=== PATIENT | female | born 1995 | race Caucasian/White ===

== ENCOUNTER → 2017-11-20 11:10 | Outpatient (CLI) | payer BC, SELFPAY ==
[2017-11-22 20:06] LABS: HSV 1 By PCR Positive (Negative)
[2017-11-23 10:35] LABS: HSV 2 By PCR Negative (Negative)
== END ==
PROVIDERS: Visit Provider Obstetrics & Gynecology
DX: N89.8 Other specified noninflammatory disorders of vagina (principal)
CPT/HCPCS: 87529

== ENCOUNTER → 2019-07-22 16:35 | Outpatient (CLI) | payer BC, SELFPAY | PROVIDERS: Visit Provider Obstetrics & Gynecology | DX: Z12.4 Encounter for screening for malignant neoplasm of cervix (principal); Z11.3 Encounter for screening for infections with a predominantly sexual mode of transmission ==

== ENCOUNTER → 2020-10-11 | Outpatient (CLI) | payer BC, SELFPAY ==
[2020-10-15 07:06] LABS: Chlamydia By Nucleic Acid AMP Negative (Negative)
[2020-10-15 16:31] LABS: Gonococcus By Nucleic Acid AMP Negative (Negative)
== END | disposition home or self-care (01) ==
PROVIDERS: Referring Provider Student in an Organized Health Care Education/Training Program; Visit Provider Student in an Organized Health Care Education/Training Program
DX: Z11.3 Encounter for screening for infections with a predominantly sexual mode of transmission (principal)
CPT/HCPCS: 87491; 87591

== ENCOUNTER 2023-05-06 06:55 | Outpatient (CLI) | payer BC, SELFPAY ==
[2023-05-06 07:09] VITALS: TEMP 36.8
[2023-05-06 07:10] VITALS: BP 151/80; PULSE 81; O2SAT 98
[2023-05-06 07:26] VITALS: BMI 31.6
[2023-05-06 07:37] VITALS: BP 122/71; PULSE 62
[2023-05-06 07:57] VITALS: BP 114/62; PULSE 62
--- NOTE | 2023-05-06 08:48 | OB.TRI.NOTE ---
HPI - General HPI Narrative MARIA E LI, is a 27 F at 39.6 weeks gestation who presents with contractions. Stated was seen yesterday in office and had membranes stripped. Continued to have contractions during the night. Denies any loss of fluid or vaginal bleeding. Positive movement. Maternal Data Information KASH Calculator Estimated Delivery Date Method Current WG Current Estimate 05/07/23 Manual 39w 6d Final KASH: 05/07/23 PFSH PFSH Allergy/AdvReac Type Severity Reaction Status Date / Time No Known Allergies Allergy Verified 05/06/23 09:32 NST FHR Rate Baby A Baseline: 125 Variability:: Moderate Accelerations:: 15 x 15 Decelerations:: None NST Reactive:: Yes FHR Category:: Category I Uterine Activity:: Irregular Assessment & Plan (1) 39 weeks gestation of : (2) Irregular contractions: PLAN: Plan NST reactive Cat. 1 tracing CE - unchanged D/C home with labor precautions Follow up in office
== END 2023-05-06 09:35 | disposition home or self-care (01) ==
LOC: WPOUT 07:00 → WP 07:01
PROVIDERS: Referring Provider Advanced Practice Midwife; Visit Provider Advanced Practice Midwife
DX: O47.1 False labor at or after 37 completed weeks of gestation (principal); Z3A.39 39 weeks gestation of pregnancy
CPT/HCPCS: 59050; 99221; G0378

== ENCOUNTER 2023-05-07 03:22 | Inpatient (IN) | payer BC, SELFPAY ==
[2023-05-07] VITALS (78 sets, daily range): BP systolic 68–150; BP diastolic 40–79; PULSE 61–118; RESP 15–20; TEMP 36.1–37.6; O2SAT 96–100; BMI 31.6
[2023-05-07 03:22] LABS: ROM Internal Control Test YES-OK TO RESULT pt. (Internal QC); ROM Patient Test POSITIVE (Negative); Record Kit Lot#, ROM+ K1409
[2023-05-07] MEDS: LACTATED RINGERS 500 ML 999 ML IV ×2 (03:35→06:11)
[2023-05-07 03:48] LABS: Absolute Lymphocyte Count 1.46 X10^3/uL (0.83-4.51); Absolute Neutrophil Count 10.6 X10^3/uL (2.0-7.7); Basophil# 0.03 X10^3/uL; Basophil% 0.2 % (0-1); Eosinophil# 0.01 X10^3/uL; Eosinophils% 0.1 % (0-5); Hematocrit 36.3 % (37-47); Hemoglobin 12.6 g/dL (12.0-15.0); Lymphocyte # 1.46 X10^3/ul (0.83-4.51); Lymphocyte % 11.3 % (19-41); Mean Corp Hgb Conc 34.7 g/dL (32-36); Mean Corpuscular Hgb 31.3 pg (27.0-32.0); Mean Corpuscular Volume 90.1 fL (81-99); Mean Platelet Vol. 10.2 fl (6.2-12.0); Monocyte# 0.85 X10^3/uL; Monocyte% 6.6 % (0-10); NRBC Flagged by Analyzer 0 % (0-5); Neutrophil # 10.58 X10^3/uL (2.7-7.7); Neutrophil % 81.5 % (47-70); Platelet Count 258 K/mm3 (150-450); RBC Distribution Width CV 13.4 % (11.6-14.6); Red Blood Count 4.03 M/mm3 (4.2-5.4)
[2023-05-07] MEDS: Lactated Ringers 1,000 ML 200 ML IV ×3 (04:07→14:45)
[2023-05-07 04:50] LABS: Syphilis Antibodies Non-reactive
[2023-05-07] MEDS: fentaNYL-bupivacaine (epidural) 100 ML BAG EPIDURAL ×2 (05:06→09:45)
--- NOTE | 2023-05-07 06:58 | PCM.HP.OB ---
HPI - General General Date of Admission: 05/07/23 HPI Narrative MARIA E LI, is a 27 F at 40 weeks gestation who presents with contractions and leaking fluid. She was seen yesterday in triage and discharged home due to no cervical change. Reports thinks she is leaking fluid since earlier in the evening. has been uncomplicated. Maternal Data Information KASH Calculator Estimated Delivery Date Method Current WG Current Estimate 05/07/23 Manual 40w 0d PFSH PFSH Home Medications vits,calcium 91-iron 28 mg-folic 975 mcg-dha 200 mg oral pack ( + DHA) pkg PO 05/07/23 [History Last Taken 05/06/23] Allergy/AdvReac Type Severity Reaction Status Date / Time No Known Allergies Allergy Verified 05/07/23 03:12 Surgical History History of surgery Social History Smoking Status: Former smoker History Elective abortions Hx Para 0 Spontaneous abortions Hx # Term Pregnancies Ectopic pregnancies Hx # Pregnancies Multiple births # of living children ROS Eyes Eyes: Denies blurry vision, change in vision or spots in vision ENT HEENT: Denies dizziness or headache(s) Cardiovascular Cardiovascular: Denies abdominal pain, chest pain or dyspnea Respiratory/Chest Respiratory/Chest: Denies cough, dyspnea, shortness of breath at rest or shortness of breath with exertion Gastrointestinal Gastrointestinal: Denies abdominal pain, diarrhea or vomiting Genitourinary Genitourinary: Denies change in urinary stream, difficulty urinating or dysuria Musculoskeletal Musculoskeletal: Reports none Integumentary Integumentary: Denies rash Neurologic Neurologic: Denies dizziness, headache(s), memory loss or weakness Psychiatric Psychiatric: Reports none Vital Signs Vital Signs Vital Signs: 05/07/23 02:44 05/07/23 02:44 05/07/23 02:44 Temperature Temperature Source Temporal Pulse Rate 89 Blood Pressure 136/76 H BP Systolic 136 BP Diastolic 76 Pulse Ox 05/07/23 02:44 05/07/23 02:44 05/07/23 03:15 Temperature 99.2 F H Temperature Source Pulse Rate 80 Blood Pressure BP Systolic BP Diastolic Pulse Ox 98 05/07/23 03:15 05/07/23 04:20 05/07/23 04:20 Temperature Temperature Source Pulse Rate 107 H Blood Pressure 134/70 H BP Systolic 134 BP Diastolic 70 Pulse Ox 97 05/07/23 04:20 05/07/23 04:20 05/07/23 04:20 Temperature 97.7 F L Temperature Source Temporal Pulse Rate Blood Pressure BP Systolic BP Diastolic Pulse Ox 97 05/07/23 04:25 05/07/23 04:25 05/07/23 04:25 Temperature Temperature Source Pulse Rate 83 Blood Pressure 131/65 H BP Systolic 131 BP Diastolic 65 Pulse Ox 98 05/07/23 04:29 05/07/23 04:29 05/07/23 04:30 Temperature Temperature Source Pulse Rate 86 100 Blood Pressure 135/69 H BP Systolic 135 BP Diastolic 69 Pulse Ox 05/07/23 04:30 05/07/23 04:35 05/07/23 04:35 Temperature Temperature Source Pulse Rate 83 Blood Pressure 131/70 H BP Systolic 131 BP Diastolic 70 Pulse Ox 98 05/07/23 04:35 05/07/23 04:39 05/07/23 04:39 Temperature Temperature Source Pulse Rate 77 Blood Pressure 136/67 H BP Systolic 136 BP Diastolic 67 Pulse Ox 97 05/07/23 04:40 05/07/23 04:40 05/07/23 04:44 Temperature Temperature Source Pulse Rate 88 Blood Pressure 130/71 H BP Systolic 130 BP Diastolic 71 Pulse Ox 98 05/07/23 04:44 05/07/23 04:45 05/07/23 04:45 Temperature Temperature Source Pulse Rate 80 85 Blood Pressure BP Systolic BP Diastolic Pulse Ox 98 05/07/23 04:49 05/07/23 04:49 05/07/23 04:50 Temperature Temperature Source Pulse Rate 82 89 Blood Pressure 140/69 H BP Systolic 140 BP Diastolic 69 Pulse Ox 05/07/23 04:50 05/07/23 04:54 05/07/23 04:54 Temperature Temperature Source Pulse Rate 94 Blood Pressure 139/70 H BP Systolic 139 BP Diastolic 70 Pulse Ox 98 05/07/23 04:55 05/07/23 04:55 05/07/23 04:59 Temperature Temperature Source Pulse Rate 90 Blood Pressure 134/77 H BP Systolic 134 BP Diastolic 77 Pulse Ox 97 05/07/23 04:59 05/07/23 05:00 05/07/23 05:00 Temperature Temperature Source Pulse Rate 107 H 98 Blood Pressure BP Systolic BP Diastolic Pulse Ox 98 05/07/23 05:04 05/07/23 05:04 05/07/23 05:05 Temperature Temperature Source Pulse Rate 93 96 Blood Pressure 125/67 H BP Systolic 125 BP Diastolic 67 Pulse Ox 05/07/23 05:05 05/07/23 05:09 05/07/23 05:09 Temperature Temperature Source Pulse Rate 99 Blood Pressure 128/63 H BP Systolic 128 BP Diastolic 63 Pulse Ox 97 05/07/23 05:10 05/07/23 05:10 05/07/23 05:14 Temperature Temperature Source Pulse Rate 99 Blood Pressure 127/61 H BP Systolic 127 BP Diastolic 61 Pulse Ox 96 05/07/23 05:14 05/07/23 05:15 05/07/23 05:15 Temperature Temperature Source Pulse Rate 98 100 Blood Pressure BP Systolic BP Diastolic Pulse Ox 98 05/07/23 05:19 05/07/23 05:19 05/07/23 05:20 Temperature Temperature Source Pulse Rate 89 94 Blood Pressure 127/66 H BP Systolic 127 BP Diastolic 66 Pulse Ox 05/07/23 05:20 05/07/23 05:00 05/07/23 05:24 Temperature Temperature Source Pulse Rate Blood Pressure 129/68 H BP Systolic 129 BP Diastolic 68 Pulse Ox 98 98 05/07/23 05:24 05/07/23 05:24 05/07/23 05:25 Temperature Temperature Source Pulse Rate 103 H 94 Blood Pressure 128/70 H BP Systolic 128 BP Diastolic 70 Pulse Ox 05/07/23 05:25 05/07/23 05:29 05/07/23 05:29 Temperature Temperature Source Pulse Rate 82 Blood Pressure 120/60 BP Systolic 120 BP Diastolic 60 Pulse Ox 97 05/07/23 05:30 05/07/23 05:30 05/07/23 05:34 Temperature Temperature Source Pulse Rate 91 Blood Pressure 121/65 H BP Systolic 121 BP Diastolic 65 Pulse Ox 98 05/07/23 05:34 05/07/23 05:35 05/07/23 05:35 Temperature Temperature Source Pulse Rate 90 89 Blood Pressure BP Systolic BP Diastolic Pulse Ox 97 05/07/23 05:39 05/07/23 05:39 05/07/23 05:40 Temperature Temperature Source Pulse Rate 83 84 Blood Pressure 124/64 H BP Systolic 124 BP Diastolic 64 Pulse Ox 05/07/23 05:40 05/07/23 05:44 05/07/23 05:44 Temperature Temperature Source Pulse Rate 82 Blood Pressure 123/63 H BP Systolic 123 BP Diastolic 63 Pulse Ox 98 05/07/23 05:45 05/07/23 05:45 05/07/23 05:49 Temperature Temperature Source Pulse Rate 86 Blood Pressure 122/68 H BP Systolic 122 BP Diastolic 68 Pulse Ox 97 05/07/23 05:49 05/07/23 05:50 05/07/23 05:50 Temperature Temperature Source Pulse Rate 80 83 Blood Pressure BP Systolic BP Diastolic Pulse Ox 97 05/07/23 05:54 05/07/23 05:54 05/07/23 05:55 Temperature Temperature Source Pulse Rate 87 76 Blood Pressure 121/69 H BP Systolic 121 BP Diastolic 69 Pulse Ox 05/07/23 05:55 05/07/23 05:59 05/07/23 05:59 Temperature Temperature Source Pulse Rate 80 Blood Pressure 116/67 BP Systolic 116 BP Diastolic 67 Pulse Ox 97 05/07/23 06:00 05/07/23 06:00 05/07/23 06:00 Temperature 98.3 F Temperature Source Temporal Pulse Rate Blood Pressure BP Systolic BP Diastolic Pulse Ox 99 05/07/23 06:07 05/07/23 06:07 05/07/23 06:08 Temperature Temperature Source Pulse Rate 106 H Blood Pressure 68/40 L BP Systolic 68 BP Diastolic 40 Pulse Ox 99 05/07/23 06:08 05/07/23 06:09 05/07/23 06:09 Temperature Temperature Source Pulse Rate 111 H 86 Blood Pressure 100/53 L BP Systolic 100 BP Diastolic 53 Pulse Ox 05/07/23 06:12 05/07/23 06:12 05/07/23 06:12 Temperature Temperature Source Pulse Rate 71 Blood Pressure 95/48 L BP Systolic 95 BP Diastolic 48 Pulse Ox 98 05/07/23 06:17 05/07/23 06:17 05/07/23 06:17 Temperature Temperature Source Pulse Rate 88 Blood Pressure 101/50 L BP Systolic 101 BP Diastolic 50 Pulse Ox 98 05/07/23 06:22 05/07/23 06:22 05/07/23 06:22 Temperature Temperature Source Pulse Rate 88 Blood Pressure 98/47 L BP Systolic 98 BP Diastolic 47 Pulse Ox 98 05/07/23 06:22 05/07/23 06:27 05/07/23 06:27 Temperature Temperature Source Pulse Rate 88 75 Blood Pressure 96/51 L BP Systolic 96 BP Diastolic 51 Pulse Ox 05/07/23 06:27 05/07/23 06:32 05/07/23 06:32 Temperature Temperature Source Pulse Rate 103 H Blood Pressure 107/51 L BP Systolic 107 BP Diastolic 51 Pulse Ox 98 05/07/23 06:32 05/07/23 06:38 05/07/23 06:38 Temperature Temperature Source Pulse Rate 75 Blood Pressure 119/76 BP Systolic 119 BP Diastolic 76 Pulse Ox 98 05/07/23 06:43 05/07/23 06:43 05/07/23 06:43 Temperature Temperature Source Temporal Pulse Rate 75 Blood Pressure 120/69 BP Systolic 120 BP Diastolic 69 Pulse Ox 05/07/23 06:43 05/07/23 06:49 05/07/23 06:49 Temperature 98.3 F Temperature Source Pulse Rate 101 H Blood Pressure 116/57 L BP Systolic 116 BP Diastolic 57 Pulse Ox Weight Weight: 195 lb 9.6 oz Body Mass Index (BMI) 31.6 Physical Exam Const alert, oriented x3 and no apparent distress General Appearance: cooperative Orientation / Consciousness: awake Exam Limitations: no limitations HEENT normocephalic Head and Scalp: normal to inspection Eyes General Eye: normal appearance of both eyes Neck full ROM and no lymphadenopathy Lymph Lymphatic: no lymphadenopathy noted Chest inspection of chest normal Resp normal respiratory effort, normal air movement and clear to auscultation bilaterally Effort and Inspection: able to speak in complete sentences and symmetric chest movement Cardio regular rate and regular rhythm GI normal to inspection, nondistended, normoactive bowel sounds Manual OB Exam: presentation cephalic, dilated 4 and effaced 80 Back/Spine normal ROM Extremity full ROM and no calf tenderness Skin no rashes or lesions noted General Skin Exam: no breakdown Neuro oriented x3 and CN's II-XII intact bilaterally Psych mental status grossly normal and thought process normal Labs Labs Labs: Blood Type O POSITIVE Antibody Screen NEGATIVE Hct 36.3 % (37-47) L Hgb 12.6 g/dL (12.0-15.0) Syphilis Total Ab Non-reactive Chlamydia DNA (GERARD) Negative (Negative) N.gonorrhoeae DNA (GERARD) Negative (Negative) Miscellaneous Test GBS negative Assessment & Plan (1) Spontaneous rupture of amniotic membranes: (2) Spontaneous onset of labor: (3) 40 weeks gestation of : (4) Nulliparity: PLAN: Plan Admit to labor and delivery CE- /-2 ROM plus- POSITIVE Cat. 2 tracing with some decelerations but resolved and overall reassuring FSE and IUPC placed Epidural for pain control Anticipate
[2023-05-07] MEDS: Acetaminophen 500 MG Tablet PO (16:11)
[2023-05-07] MEDS: Sodium Citrate/Citric Acid 30 ML UDC PO (16:12)
--- NOTE | 2023-05-07 16:19 | EX.PCM.OBRPT ---
Maternal Data Information KASH Calculator Estimated Delivery Date Method Current WG Current Estimate 05/07/23 Manual 40w 0d Details Operative Information Date of Procedure: 05/07/23 Pre-Operative Diagnosis: (1) Failure to descend Post-Operative Diagnosis: Same Indications for : Failure of Descent Indications Narrative: The patient was taken to the operating room where epidural anesthesia was dosed & found to be adequate. She was prepped and draped in the dorsal supine position with a leftward tilt. A Pfannenstiel skin incision was made approximately 2 cm above the symphysis pubis and carried through to the underlying fascia with the scalpel. The fascia was incised incised in the midline and extended laterally with the Prado scissors. The rectus muscles were in the midline and the peritoneum was entered carefully and bluntly. The peritoneal incision was stretched and the bladder blade was inserted. Vesicouterine peritoneum was tented up, incised & then bladder flap created gently. The uterine incision was made in a low transverse fashion with the scalpel and extended superiorly and inferiorly with blunt dissection. RN elevated head vaginally. The infant's head was brought to the incision in the flexed position and delivered without difficulty. The head was gently guided to allow delivery of the anterior and posterior shoulders. The body then delivered with fundal pressure in the standard fashion. The 3VC cord was clamped and cut in delayed fashion. The infant was handed off to the waiting pediatric nurse practitioner. The placenta was delivered with fundal massage and gentle traction in the standard fashion. The uterus was exteriorized and cleared of clots and debris. The uterine incision was closed with 2 x #1 Vicryl suture in a running locked fashion as there were bilateral extensions of the uterine incision. 2 additional figure of eight sutures were placed on the right side of the uterine incision using 3-0 vicryl to obtain excellent hemostasis. The incision was examined and was found to be hemostatic. The uterus was returned to the abdominal cavity. The uterine incision was re-examined and 1 figure of eight suture using monocryl were placed on the left side of the uterine incision for excellent hemostasis After irrigating Mele was placed over the uterine incision as some areas were denuded (but hemostatic). The rectus muscle was examined and any bleeding was Bovie cauterized. The fascia was closed with PDS suture in a running standard fashion. The subcutaneous tissue was examining and any bleeding was Bovie cauterized. The subcutaneous tissue was reapproximated with interrupted sutures. The skin was closed in a subcuticular fashion by the APPLICATIONS SCIENTIST while I was present in the labor & delivery unit. The remainder of the procedure was performed by me with assistance. All sponge, lap, and needle counts were correct. The patient was taken to her room for recovery in a stable condition. Classification: ARNOLDO Procedure Type: low transverse home sales service professional #1: Nanda Purcell Type of Anesthesia: Epidural Antibiotic Given: Ancef 2 grams IV x1 and Zithromax 500 mg/5 mL X1 Drain: De Leon to straight drain Estimated Blood Loss: 800ml Fluids Replaced: 1200ml Procedure Start Time: 16:34 Procedure Stop Time: 17:28 Findings Description of Procedure: Normal maternal uterus and adnexa Presentation: Positive for Vertex Amniotic Membrane Rupture Type: Artificial Amniotic Fluid Description: Lightly stained meconium Placental Delivery Description: Expressed Placenta Disposition: [facility] Specimen(s) Sent to Pathology: none Cord Vessel Description: 3 Vessels Cord Entanglement: None Infant A Gender: Male (1 minute): 8 (5 minute): 9 Delayed Cord Clamping: No Complications Complications: none
[2023-05-07] MEDS: Cefazolin 2 GM in 0.9% Normal Saline (100mL Bag) 100 ML IV (16:20)
[2023-05-07] MEDS: Azithromycin 500 MG in Dextrose 5%-Water (250mL Bag) 250 ML 250 MG IV (17:04)
[2023-05-07] MEDS: Oxytocin 15 Units/NS 250ml 15 UNITS/250 ML IV.SOLN 83 UNITS IV (17:54)
[2023-05-07] MEDS: Ketorolac 30 MG/ML Syringe IV (18:43)
--- NOTE | 2023-05-07 19:55 | NURSING ---
epidural catheter removed tip intact at this time, pt tolerated well, band aid applied
[2023-05-07] MEDS: Lactated Ringers 1,000 ML 100 ML IV (20:59)
[2023-05-07] MEDS: Acetaminophen 500 MG Tablet 1000 MG PO (21:59)
[2023-05-08] VITALS (9 sets, daily range): BP systolic 107–123; BP diastolic 49–70; PULSE 62–95; RESP 16–18; TEMP 36.1–37; O2SAT 96–98
[2023-05-08] MEDS: Ketorolac 30 MG/ML Syringe IV ×3 (00:10→12:20)
[2023-05-08] MEDS: Acetaminophen 500 MG Tablet 1000 MG PO ×4 (04:17→22:27)
[2023-05-08] MEDS: Enoxaparin 40 MG/0.4 ML Syringe SC (04:17)
[2023-05-08 04:55] LABS: Hemoglobin 10.1 g/dL (12.0-15.0); Mean Corp Hgb Conc 32.6 g/dL (32-36); Mean Corpuscular Hgb 30.5 pg (27.0-32.0); Mean Corpuscular Volume 93.7 fL (81-99); Mean Platelet Vol. 10.6 fl (6.2-12.0); Platelet Count 180 K/mm3 (150-450); RBC Distribution Width CV 13.8 % (11.6-14.6); RBC Distribution Width SD 46.7 fl (35.1-43.9); Red Blood Count 3.31 M/mm3 (4.2-5.4); White Blood Count 14.7 K/mm3 (4.4-11.0)
[2023-05-08] MEDS: 0.9% Saline Lock 10 ML Syringe IV ×2 (06:22→12:20)
--- NOTE | 2023-05-08 07:45 | NURSING ---
pt encouraged to go the BR. will recheck fundus after she gets back to bed.
--- NOTE | 2023-05-08 08:00 | PCM.PN.OB ---
Subjective Subjective Doing well per patient and nursing staff. Ambulating and taking PO without difficulty. Voiding and passing flatus. Pain controlled. Denies headache, visual changes, chest pain, shortness of breath, leg pain or increased bleeding. Lochia normal. Objective Data Objective Data Vital Signs: Vital Signs Temp Pulse Resp BP Pulse Ox O2 Del Method 97.0 F L 62 16 107/57 L 97 Room Air 05/08/23 07:39 05/08/23 07:39 05/08/23 07:39 05/08/23 07:39 05/08/23 07:39 05/08/23 07:39 Oxygen Delivery Method Room Air Weight: 195 lb 9.6 oz Body Mass Index (BMI) 31.6 Intake & Output: Intake and Output for Last 24 Hours 05/06/23 05/07/23 05/08/23 23:59 23:59 23:59 Intake Total 3345.00 / 3345.00 751.67 / 751.67 Output Total 2260 / 2260 600 / 600 Balance 1085.00 / 1085.00 151.67 / 151.67 Lab / Micro Data 05/08/23 04:40 Labs: Laboratory Results - last 24 hr 05/08/23 04:40: WBC 14.7 H, RBC 3.31 L, Hgb 10.1 L, Hct 31.0 L, MCV 93.7, MCH 30.5, MCHC 32.6 D, RDW Std Deviation 46.7 H, RDW Coeff of Joe 13.8, Plt Count 180, MPV 10.6 ROS Constitutional Constitutional: Reports systems reviewed and no addt'l complaints, except as documented; Denies headache(s) Eyes Eyes: Denies acute decrease in peripheral vision, blurry vision or change in vision ENT HEENT: Reports systems reviewed and no addt'l complaints, except as documented Cardiovascular Cardiovascular: Denies chest pain or dizziness Respiratory/Chest Respiratory/Chest: Denies cough, dyspnea, dyspnea on exertion, shortness of breath at rest or shortness of breath with exertion Gastrointestinal Gastrointestinal: Denies abdominal pain, diarrhea, nausea or vomiting Genitourinary Genitourinary: Denies abdominal discomfort Musculoskeletal Musculoskeletal: Denies limited range of motion Integumentary Integumentary: Reports systems reviewed and no addt'l complaints, except as documented Neurologic Neurologic: Reports systems reviewed and no addt'l complaints, except as documented Psychiatric Psychiatric: Reports systems reviewed and no addt'l complaints, except as documented Endocrine Endocrinology: Reports systems reviewed and no addt'l complaints, except as documented Hematologic/Lymphatic Hematologic/Lymphatic: Reports systems reviewed and no addt'l complaints, except as documented Allergic/Immunologic Allergic/Immunologic: Reports systems reviewed and no addt'l complaints, except as documented Physical Exam Const alert and oriented x3 General Appearance: cooperative Orientation / Consciousness: awake, oriented to person, oriented to place and oriented to time Exam Limitations: no limitations HEENT normocephalic Head and Scalp: normal to inspection, normocephalic and atraumatic Face and Sinus: normal facial exam Eyes General Eye: normal appearance of both eyes Neck full ROM Chest Chest: symmetrical chest wall rise Resp normal respiratory effort and normal air movement Auscultation: clear to auscultation bilaterally Cardio regular rate, regular rhythm, S1 normal heart sound, S2 normal heart sound, no murmurs, no rub, no gallops and no clicks GI normal to inspection, nondistended, normoactive bowel sounds and non-tender appearance of the vagina normal Bladder / Kidney Exam: no CVA tenderness Back/Spine normal ROM Extremity normal to inspection and full ROM Skin no rashes or lesions noted Neuro oriented x3 and moves all extremities Sensorium / Orientation: awake, alert and oriented to person Assessment & Plan (1) Status post section: PLAN: Plan 1) POD #1 Section 2) Vitals stable 3) I&O 4) Pain management 5) Planning D/C home tomorrow
[2023-05-08] MEDS: Senna/Docusate Sodium 1 Tablet PO (10:12)
[2023-05-08] MEDS: Ibuprofen 600 MG Tablet PO (18:35)
[2023-05-09] MEDS: Ibuprofen 600 MG Tablet PO ×2 (00:38→06:22)
[2023-05-09 01:20] VITALS: BP 115/71; PULSE 89; RESP 16; TEMP 36.3; O2SAT 96
[2023-05-09] MEDS: Acetaminophen 500 MG Tablet 1000 MG PO ×2 (04:29→10:10)
[2023-05-09] MEDS: Enoxaparin 40 MG/0.4 ML Syringe SC (04:29)
[2023-05-09 07:57] VITALS: BP 115/69; PULSE 78; RESP 14; TEMP 36.6
[2023-05-09 07:59] VITALS: PULSE 78; RESP 14
[2023-05-09] MEDS: Senna/Docusate Sodium 1 Tablet PO (10:10)
--- NOTE | 2023-05-09 10:44 | PCM.PN.OB ---
Subjective Subjective Doing well per patient and nursing staff. Ambulating and taking PO without difficulty. Voiding and passing flatus. Pain controlled. , services for assistance. Denies headache, visual changes, chest pain, shortness of breath, leg pain or increased bleeding. Lochia normal. Objective Data Objective Data Vital Signs: Vital Signs Temp Pulse Resp BP Pulse Ox O2 Del Method 97.8 F 78 14 115/69 96 Room Air 05/09/23 07:57 05/09/23 07:59 05/09/23 07:59 05/09/23 07:57 05/09/23 01:20 05/09/23 07:59 Oxygen Delivery Method Room Air Weight: 195 lb 9.6 oz Body Mass Index (BMI) 31.6 Intake & Output: Intake and Output for Last 24 Hours 05/07/23 05/08/23 05/09/23 23:59 23:59 23:59 Intake Total 3345.00 / 3345.00 751.67 / 751.67 Output Total 2260 / 2260 1950 / 1950 Balance 1085.00 / 1085.00 -1198.33 / -1198.33 Lab / Micro Data 05/08/23 04:40 ROS Constitutional Constitutional: Reports systems reviewed and no addt'l complaints, except as documented; Denies headache(s) Eyes Eyes: Denies acute decrease in peripheral vision, blurry vision or change in vision ENT HEENT: Reports systems reviewed and no addt'l complaints, except as documented Cardiovascular Cardiovascular: Denies chest pain or dizziness Respiratory/Chest Respiratory/Chest: Denies cough, dyspnea, dyspnea on exertion, shortness of breath at rest or shortness of breath with exertion Gastrointestinal Gastrointestinal: Denies abdominal pain, diarrhea, nausea or vomiting Genitourinary Genitourinary: Denies abdominal discomfort Musculoskeletal Musculoskeletal: Denies limited range of motion Integumentary Integumentary: Reports systems reviewed and no addt'l complaints, except as documented Neurologic Neurologic: Reports systems reviewed and no addt'l complaints, except as documented Psychiatric Psychiatric: Reports systems reviewed and no addt'l complaints, except as documented Endocrine Endocrinology: Reports systems reviewed and no addt'l complaints, except as documented Hematologic/Lymphatic Hematologic/Lymphatic: Reports systems reviewed and no addt'l complaints, except as documented Allergic/Immunologic Allergic/Immunologic: Reports systems reviewed and no addt'l complaints, except as documented Physical Exam Const alert and oriented x3 General Appearance: cooperative Orientation / Consciousness: awake, oriented to person, oriented to place and oriented to time Exam Limitations: no limitations HEENT normocephalic Head and Scalp: normal to inspection, normocephalic and atraumatic Face and Sinus: normal facial exam Eyes General Eye: normal appearance of both eyes Neck full ROM Chest Chest: symmetrical chest wall rise Resp normal respiratory effort and normal air movement Auscultation: clear to auscultation bilaterally Cardio regular rate, regular rhythm, S1 normal heart sound, S2 normal heart sound, no murmurs, no rub, no gallops and no clicks GI normal to inspection, nondistended, normoactive bowel sounds and non-tender appearance of the vagina normal Bladder / Kidney Exam: no CVA tenderness Back/Spine normal ROM Extremity normal to inspection and full ROM Skin no rashes or lesions noted Neuro oriented x3 and moves all extremities Sensorium / Orientation: awake, alert and oriented to person Assessment & Plan (1) Status post section: PLAN: Plan 1) PPD #2 2) Vitals stable 3) I&O 4) Pain management 5) Planning D/C home today
--- NOTE | 2023-05-09 11:07 | PCM.DC.SUM ---
Providers Date of Admission: 05/07/23 Date of Discharge: 05/09/23 Reason For Visit: PRIMARY Diagnosis Discharge Diagnosis (1) Status post section: Status: Acute Code(s): Z98.891 - History of uterine scar from previous surgery Plan 1) PPD #2 2) Vitals stable 3) I&O 4) Pain management 5) Planning D/C home today Medications at Discharge Home Medications vits,calcium 91-iron 28 mg-folic 975 mcg-dha 200 mg oral pack ( + DHA) pkg PO 05/07/23 acetaminophen 500 mg tablet 1,000 mg (2 x 500 mg) PO Q6H #0 tabs 05/09/23 ibuprofen 600 mg tablet 600 mg PO Q6H #0 tabs 05/09/23 oxycodone 5 mg tablet 5 - 10 mg (1 - 2 x 5 mg) PO Q4H PRN PRN Pain Score 4-10 7 days #10 tabs 05/09/23 sennosides 8.6 mg-docusate sodium 50 mg tablet (Stool Softener-Stimulant Laxative) 1 - 2 tab PO DAILY #30 tabs 05/09/23 Hospital Course Summary of Care Provided Minutes Spent on Discharge: 15 Hospital Course: Primary LTCS due to failure to descend. Discharge on POD #2 Weight / BMI Weight Weight: 195 lb 9.6 oz Body Mass Index (BMI) 31.6 ABG / Lab / Microbiology Data 05/08/23 04:40 D/C Instructions Discharge Diet: No restrictions Discharge Activity: May Not Drive and May Shower May resume sexual activity in: 6 weeks Weight Bearing Status: Full weight bearing Lifting Restricted to (Lbs): 20 Call your doctor if your incision/area has: Continuous Slow Oozing, Sudden Increased Bleeding, Increased Pain/ Swelling, Increased Redness, Foul Smelling Discharge and Swelling at the incision site Call your doctor if you observe: Fever of 101 or Higher, Inability to urinate, Inability to have a bowel movement, Using more than 1 pad per hour, Shortness of breath, Calf discomfort and Uncontrolled pain Suture Line Care: Avoid Pulling/Pushing and Avoid Pinching/Bending Remove Dressing in: 2 days Cleanse incision/area with: Soap & Water Please Follow Up With: Wagner Coronado MD When: 1 week for incision check and 6 week PP visit Meaningful Use Info Meaningful Use Diagnoses (Choose all that apply): None applicable Discharge Plan Admission Admit Date/Time: 05/07/23 03:22 Primary Reason for Your Visit: Section Attending Provider: Wagner Coronado Discharge Orders/Prescriptions Prescriptions: New acetaminophen 500 mg Tablet 1,000 mg PO Q6H Qty: 0 0RF ibuprofen 600 mg Tablet 600 mg PO Q6H Qty: 0 0RF oxycodone 5 mg Tablet 5 - 10 mg PO Q4H PRN PRN (Reason: Pain Score 4-10) 7 Days Qty: 10 0RF sennosides-docusate sodium [Stool Softener-Stimulant Laxat] 8.6-50 mg Tablet 1 - 2 tab PO DAILY Qty: 30 0RF Continued + DHA 28 mg iron- 975 mcg-200 mg combo pack PO Disposition Disposition (needs filled in before D/C Order can be placed): Home, Self Care
== END 2023-05-09 12:20 | disposition home or self-care (01) | DRG 788 ==
LOC: WPOUT 03:25 → WP 03:25
PROVIDERS: Advanced Practice Midwife; Admitting Provider Obstetrics & Gynecology; Visit Provider Obstetrics & Gynecology
DX: O76 Abnormality in fetal heart rate and rhythm complicating labor and delivery (principal); O62.1 Secondary uterine inertia; Z37.0 Single live birth; O77.0 Labor and delivery complicated by meconium in amniotic fluid; Z3A.40 40 weeks gestation of pregnancy; Z87.891 Personal history of nicotine dependence
CPT/HCPCS: 59025; 59050; 84112; 85025; 85027; 86780; 86850; 86900; 86901; 99221; J7120; A4216; G0378; J2405